=== PATIENT | female | born 1970 | race Caucasian/White ===

== ENCOUNTER → 2018-04-14 12:57 | Outpatient (CLI) | payer OTHER, SELFPAY ==
[2018-04-14 14:39] LABS: Cholesterol 263 mg/dL (200); High Density Lipoprotein 75 mg/dL; Triglycerides 64 mg/dL; Very Low Density Lipoprotein 13 mg/dL (5-40)
== END ==
PROVIDERS: Family Provider Internal Medicine; PCP Internal Medicine; Visit Provider Internal Medicine
DX: Z00.00 Encounter for general adult medical examination without abnormal findings (principal)
CPT/HCPCS: 36415; 80061

== ENCOUNTER → 2019-07-07 16:57 | Outpatient (CLI) | payer OTHER, SELFPAY ==
--- NOTE | 2019-07-07 17:01 | US_ITS ---
STUDY: SOFT TISSUE ULTRASOUND REASON FOR EXAM: Female, 48 years old. Forehead lump TECHNIQUE: Ultrasound evaluation of the soft tissues of the forehead was performed with real-time and static payton-scale imaging. COMPARISON: None. FINDINGS: There is a 1.6 x 1.5 cm heterogeneous hypoechoic lesion in the soft tissues of the forehead which is of uncertain etiology. US/Ext Non Vasc Limited/Soft Tiss IMPRESSION: 1.6 x 1.5 cm heterogeneous hypoechoic lesion in the soft tissues of the forehead which is of uncertain etiology. Consider dermatologic consultation. Electronically Signed: Mitchel Serrano, at 17:06 EDT Tel , Service support ,
== END ==
PROVIDERS: Family Provider Internal Medicine; PCP Internal Medicine; Referring Provider Internal Medicine; Visit Provider Internal Medicine
DX: R22.9 Localized swelling, mass and lump, unspecified (principal)
CPT/HCPCS: 76882

== ENCOUNTER 2021-06-10 13:14 | Observation (INO) | payer OTHER, SELFPAY ==
[2021-06-10] VITALS (11 sets, daily range): BP systolic 107–132; BP diastolic 63–81; PULSE 87–141; RESP 14–28; TEMP 36.4–37; O2SAT 97–100; BMI 25.4
--- NOTE | 2021-06-10 13:25 | EKG12_ITS ---
Test Reason : PALPS Blood Pressure : / mmHG Vent. Rate : 121 BPM Atrial Rate : 100 BPM P-R Int : 140 ms QRS Dur : 082 ms QT Int : 332 ms P-R-T Axes : 039 064 027 degrees QTc Int : 471 ms Sinus rhythm with frequent and consecutive Premature ventricular complexes Abnormal ECG Confirmed by PRATIBHA SMITH, ALEJANDRINA ([id number]), photography editor ELIU YBARRA ([id number]) on 06/13/2021 11:00:35 AM Referred By: SONA Confirmed By:ALEJANDRINA MCKINNON MD
--- NOTE | 2021-06-10 13:47 | EKG12_ITS ---
Test Reason : AM EKG Blood Pressure : / mmHG Vent. Rate : 089 BPM Atrial Rate : 089 BPM P-R Int : 168 ms QRS Dur : 084 ms QT Int : 376 ms P-R-T Axes : 038 065 044 degrees QTc Int : 457 ms Normal sinus rhythm Nonspecific ST abnormality Abnormal ECG Confirmed by PRATIBHA SMITH, ALEJANDRINA ([id number]), map editor ELIU YBARRA ([id number]) on 06/12/2021 10:47:22 AM Referred By: ELOISE Confirmed By:ALEJANDRINA MCKINNON MD
--- NOTE | 2021-06-10 13:47 | RAD_ITS ---
STUDY: X-RAY CHEST REASON FOR EXAM: Female, 50 years old. Dizziness. Arrhythmia. TECHNIQUE: Single AP portable view of the chest. COMPARISON: Comparison is made with prior study dated 10/10/2013. FINDINGS: The lungs are clear and expanded. There is no demonstrated pleural abnormality. Normal size heart. Normal mediastinum and shira. Normal visualized pulmonary arteries. Normal visualized aortic arch and descending thoracic aorta. Normal visualized thoracic spine. Normal visualized ribs, clavicles, and shoulders. There is no demonstrated abnormality of the visualized soft tissue structures of the upper abdomen. RAD/Chest 1 View (Portable) IMPRESSION: Normal x-ray examination of the chest. Electronically Signed: Ravin Piña MD at 14:39 EDT , Service support ,
--- NOTE | 2021-06-10 14:23 | EDS_ITS ---
HPI History of Present Illness Chief Complaint: Palpitations Informant: patient Narrative Narrative: Patient is a 50-year-old female with a past medical history of thyroid cancer status post resection on Synthroid who presents to the emergency department for lightheaded episodes. She states on Thursday she was having very severe episodes where she felt like she was blacking out. This happened many times and lasted for quite a while. These were occurring at random times. She states that it did not matter whether she was exerting herself or just lying down whenever they were happening. Yesterday they were improving but still happening. Today she denies having any symptoms. She went to her PCPs office and they discovered that she was having multiple PVCs and nonsustained run of V. tach. Patient states that she might have felt some palpitations yesterday but otherwise denies having any now. She denies any chest pain or shortness of breath. She denies any recent illness. She has been overall feeling well prior to Thursday. [facility] Medical History (Updated 06/10/21 @ 15:[address] Raymundo Howard DO) Thyroid cancer Home Medications drospirenone-ethinyl estradiol [Vestura (28)] 1 tab PO QHS 06/10/21 [History Last Taken 06/09/21] levothyroxine [Synthroid] 112 mcg PO DAILY 06/10/21 [History Last Taken 06/10/21 ] Allergy/AdvReac Type Severity Reaction Status Date / Time No Known Allergies Allergy Verified 06/10/21 13:16 Social History Smoking Status: Never smoker ROS ROS ED Constitutional Constitutional ED: Denies chills or fever(s) Eyes Eyes: Denies change in vision ENT ENT ED: Denies epistaxis or rhinorrhea Cardiovascular Cardiovascular: Reports palpitations; Denies chest pain Respiratory/Chest Respiratory/Chest: Denies cough, dyspnea or dyspnea on exertion Gastrointestinal Gastrointestinal: Denies abdominal pain, diarrhea, nausea or vomiting Genitourinary Genitourinary ED: Denies dysuria, hematuria or urinary frequency Musculoskeletal Musculoskeletal: Denies back pain or neck pain Integumentary Denies rash Neurologic Neurologic: Denies headache(s) or weakness EXAM Physical Exam Const Vital Signs: 06/10/21 13:16 06/10/21 14:27 06/10/21 15:13 Temperature 97.6 F L Temperature Source Temporal Pulse Rate 104 H 125 H Respiratory Rate 14 28 H Respiratory Effort Normal Non-Labored Respiratory Pattern Normal Blood Pressure 132/79 H 107/81 H Blood Pressure Mean 96 89 Pulse Ox 97 97 Oxygen Delivery Method Room Air Positive well nourished and well developed General Appearance ED: well developed and NAD HEENT Reports normocephalic, head/scalp atraumatic and moist mucous membranes Eyes PERRL and EOMs intact bilaterally Neck supple Chest Wall inspection of chest normal Resp normal respiratory effort and clear to auscultation bilaterally Auscultation: Negative for rales, rhonchi or wheezes Cardio regular rhythm and no murmurs Rate: tachycardic GI normal to inspection, nondistended, normoactive bowel sounds and non-tender Palpation: soft; Negative for guarding or rebound tenderness present Back/Spine no CVA tenderness Extremity normal to inspection General Extremety ED: Negative for edema or tenderness General Extremity: Negative for edema Neuro oriented x3, CN's II-XII intact bilaterally and no sensory deficits noted Sensorium / Orientation: alert Motor Exam: strength 5/5 throughout Psych mental status grossly normal Skin no rashes or lesions noted MDM MDM MDM Narrative Medical decision making narrative: Patient presents the ED from her PCPs office for nonsustained runs of V. tach. On arrival to the ED she had 5 beats of nonsustained V. tach along with frequent PVCs. She is asymptomatic at this time. Blood pressure has been stable. Will check basic lab work, thyroid study and consult cardiology. Patient's lab work did not reveal any significant acute abnormality. She has remained stable throughout ED stay. She had up to an 8 beat episode of nonsustained ventricular tachycardia on the monitor. Her blood pressure has been stable. I did discuss the case with the on-call fire behavior analyst, Dr. Alexis gallego. Not recommend starting any medications at this time. I did discuss everything with the patient and we decided on hospitalization for an observation visit. She will likely need echocardiogram and potential stress test. Patient understands and is agreeable with this plan. She otherwise has remained stable throughout ED stay. Lab Data Labs: Laboratory Results - last 24 hr 06/10/21 06/10/21 14:20 14:20 WBC 10.5 RBC 4.42 Hgb 13.3 Hct 39.4 MCV 89.1 MCH 30.1 MCHC 33.8 RDW Std Deviation 39.7 RDW Coeff of [place] 12.0 Plt Count 291 MPV 9.7 Immature Gran % (Auto) 0.400 Neut % (Auto) 64.0 Lymph % (Auto) 27.1 [place] % (Auto) 6.1 Eos % (Auto) 1.6 Baso % (Auto) 0.8 Absolute Neuts (auto) 6.8 Absolute Lymphs (auto) 2.85 Nucleated RBC % 0 Sodium 138 Potassium 3.6 Chloride 105 Carbon Dioxide 26.0 Anion Gap 7 BUN 9 Creatinine 0.86 Estim Creat Clear Calc 66.08 Est GFR (MDRD) Af Amer 89 Est GFR (MDRD) Non-Af 73 BUN/Creatinine Ratio 10.4 Glucose 111 H Calcium 9.2 Phosphorus 2.9 Magnesium 2.1 Troponin I High Sens 3.9 TSH 1.27 Radiography Diagnostic Testing: Radiology Impression Chest X-Ray 06/10/21 13:47 IMPRESSION: Normal x-ray examination of the chest. Electronically Signed: Ravin Piña MD at 14:39 EDT , Service support , EKG Initial EKG: Attestation: I personally reviewed and interpreted this EKG as follows: (Rate of 121 bpm. There are 3 separate episodes of PVCs. There is a 2 beat episode, a 5 beat episode of 3 beat episode. Otherwise she has normal intervals with a normal axis. No significant ST elevations or depressions.) Discharge Plan Dx/Rx/DC Orders Clinical Impression: Non-sustained ventricular tachycardia, Near syncope Disposition Disposition: Acute Care [facility]
[2021-06-10 14:28] LABS: Absolute Lymphocyte Count 2.85 X10^3/uL (0.83-4.51); Absolute Neutrophil Count 6.8 X10^3/uL (2.0-7.7); Basophil# 0.08 X10^3/uL; Basophil% 0.8 % (0-1); Eosinophil# 0.17 X10^3/uL; Eosinophils% 1.6 % (0-5); Hematocrit 39.4 % (37-47); Hemoglobin 13.3 g/dL (12.0-15.0); Lymphocyte # 2.85 X10^3/ul (0.83-4.51); Lymphocyte % 27.1 % (19-41); Mean Corp Hgb Conc 33.8 g/dL (32-36); Mean Corpuscular Hgb 30.1 pg (27.0-32.0); Mean Corpuscular Volume 89.1 fL (81-99); Mean Platelet Vol. 9.7 fl (6.2-12.0); Monocyte# 0.64 X10^3/uL; Monocyte% 6.1 % (0-10); NRBC Flagged by Analyzer 0 % (0-5); Neutrophil # 6.75 X10^3/uL (2.7-7.7); Platelet Count 291 K/mm3 (150-450); RBC Distribution Width SD 39.7 fl (35.1-43.9); Red Blood Count 4.42 M/mm3 (4.2-5.4); White Blood Count 10.5 K/mm3 (4.4-11.0)
[2021-06-10 14:55] LABS: Anion Gap 7 (5-15); BUN 9 mg/dL (7-18); BUN/Creat Ratio 10.4 RATIO (10-20); Calcium,Total 9.2 mg/dL (8.5-10.1); Chloride 105 mmol/L (98-107); Creatinine, Serum 0.86 mg/dL (0.55-1.02); EST Glomerular Filtration Rate 73 mL/min (>60); Est Glom Filt Rate - Afr Amer 89 mL/min (>60); Estimated Creatinine Clearance 66.08 ml/min; Glucose 111 mg/dL (74-106); Magnesium 2.1 mg/dL (1.6-2.6); Phosphorus 2.9 mg/dL (2.5-4.9); Potassium 3.6 mmol/L (3.5-5.1); Sodium Level 138 mmol/L (136-145); Thyroid Stim Hormone (TSH) 1.27 uIU/mL (0.358-3.74); Troponin-I HS 3.9 pg/mL (3.0-53.7)
--- NOTE | 2021-06-10 15:31 | HP.PCM.HOS_ITS ---
HPI - General General Date of Admission: 06/10/21 Date of Service: 06/10/21 Chief Complaint: Palpitations, near syncope HPI Narrative The patient is a 50 y/o F w/ PMHx: Thyroid CA s/p resection otherwise healthy who presents to the [facility] ED on 06/10/21 per PCP recommendation with history of onset Thursday, several episodes of episodes of lightheadedness, blurred dark transition vision changes with mild palpitations noted following resolution but no formal syncope lasting seconds to a couple minutes each time with then only 2 episodes on Thursday and noted more episodes following of elevated HR without chest pain or dyspnea complaints with PCP evaluation on day of presentation with noted episodes of NSVT prompting ED referral. She denies any episodes of near syncope upon day of ED presentation. Patient notes drinking only 1 cup of co ffee daily and an occasional Coke or soda pop every 2 weeks potentially. Work- up in the ED included T 97.6, heart rate initially 104 however increased to 125, BP 107 RV 81, respiratory rate initially 14 however increased to 28, 97% on room air, CBC with WC 10.5, hemoglobin 13.3, platelet 291 without marked shift, BMP unremarkable aside glucose 111, magnesium 2.1, phosphorus 2.9, TSH 1.27, high-se nsitivity troponin 3.9, chest x-ray with no acute cardiopulmonary findings, initial ED presentation with 5 beats of nonsustained V. tach as well as frequent PVCs although patient asymptomatic at that time, EKG with tachycardia with 3 separate episodes of PVCs with noted to be an episode and then a 5 beat episode as well as a 3 beat episode otherwise unremarkable with no ST elevations or depressions. [facility] Medical History (Updated 06/10/21 @ 16:[address] Naima Gonzáles MD) Hypothyroidism Thyroid cancer Home Medications drospirenone-ethinyl estradiol [Vestura (28)] 1 tab PO QHS 06/10/21 [History Last Taken 06/09/21] levothyroxine [Synthroid] 112 mcg PO DAILY 06/10/21 [History Last Taken 06/10/21] Allergy/AdvReac Type Severity Reaction Status Date / Time No Known Allergies Allergy Verified 06/10/21 13:16 Family History (Updated 06/10/21 @ 16:[address] Naima Gonzáles MD) Mother Cancer Mother with melanoma HLD (hyperlipidemia) Father Cancer Unclear type of sinus cancer with metastatic spread Surgical History (Updated 06/10/21 @ 16:[address] Naima Gonzáles MD) S/P thyroid surgery Social History (Updated 06/10/21 @ 16:[address] Naima Gonzáles MD) household members: none Smoking Status: Never smoker alcohol intake: never substance use type: does not use ROS ROS Narrative Admission Review of Systems: CONSTITUTIONAL: No weight loss, fever, chills, + weakness or fatigue. HEENT: Eyes: + Vision changes w/ near syncope. No double vision or yellow sclerae. Ears, Nose, Throat: No hearing loss, sneezing, congestion, runny nose or sore throat. SKIN: No rash or itching, lesions, wounds. CARDIOVASCULAR: + Near syncope, LH, palpitations. No chest pain, chest pressure or chest discomfort, edema, orthopnea. RESPIRATORY: No shortness of breath, cough or sputum, wheezing, hemoptysis. GASTROINTESTINAL: No anorexia, nausea, vomiting or diarrhea, abdominal pain, melena, BRBPR. GENITOURINARY: No dysuria, frequency, urgency or retention. NEUROLOGICAL: + LH, near syncope. No headache, paralysis, ataxia, numbness or tingling in the extremities, focal weakness, change in bowel or bladder control, seizure. MUSCULOSKELETAL: No muscle, back pain, joint pain or stiffness. HEMATOLOGIC: No anemia, bleeding or bruising. LYMPHATICS: No enlarged nodes. No history of splenectomy. PSYCHIATRIC: No history of depression or anxiety. ENDOCRINOLOGIC: No reports of sweating, cold or heat intolerance. No polyuria or polydipsia. ALLERGIES: No history of asthma, hives, eczema or rhinitis. Vital Signs Vital Signs Vital Signs: 06/10/21 13:16 06/10/21 14:27 06/10/21 15:13 Temperature 97.6 F L Temperature Source Temporal Pulse Rate 104 H 125 H Respiratory Rate 14 28 H Respiratory Effort Normal Non-Labored Respiratory Pattern Normal Blood Pressure 132/79 H 107/81 H Blood Pressure Mean 96 89 Pulse Ox 97 97 Oxygen Delivery Method Room Air Weight Weight: 148 lb 9.465 oz Body Mass Index (BMI) 25.4 Physical Exam Narrative Physical Examination: General: Awake, alert, oriented x 3 and cooperative, seated upright in the ED bed in no apparent distress. Skin: Normal color, normal turgor, no icterus, no cyanosis. HEENT: AT/NC, EOMI, PERRLA, MMM, no carotid bruits or JVD noted. Lungs: CTA bilaterally, moderate effort, mild decrease BL bases, no rales, ronchi or wheezing. Heart: Improved, currently mildly tachycardic with regular rhythm; no gallop, ru b audible. Abdomen: Soft, NTTP, ND, normal BS, no HSM. Extremities: No cyanosis, clubbing, or edema. Neurological: Patient awake, alert, oriented x 3, cognitive function intact; pupils equally reactive to light and accommodation, cranial nerves II-XII grossly normal, moving all 4 extremities, no focal deficits, strength preserved. Psychiatric: Affect appears normal, no acute evidence of depressive or anxiety feelings. Results Lab / Micro Data Result Diagrams: 06/10/21 14:20 06/10/21 14:20 Labs: Laboratory Results - last 24 hr 06/10/21 14:20: WBC 10.5, RBC 4.42, Hgb 13.3, Hct 39.4, MCV 89.1, MCH 30.1, MCHC 33.8, RDW Std Deviation 39.7, RDW Coeff of [place] 12.0, Plt Count 291, MPV 9.7, Immature Gran % (Auto) 0.400, Neut % (Auto) 64.0, Lymph % (Auto) 27.1, [place] % (Auto) 6.1, Eos % (Auto) 1.6, Baso % (Auto) 0.8, Absolute Neuts (auto) 6.8, Absolute Lymphs (auto) 2.85, Nucleated RBC % 0 06/10/21 14:20: Sodium 138, Potassium 3.6, Chloride 105, Carbon Dioxide 26.0, Anion Gap 7, BUN 9, Creatinine 0.86, Estim Creat Clear Calc 66.08, Est GFR (MDRD) Af Amer 89, Est GFR (MDRD) Non-Af 73, BUN/Creatinine Ratio 10.4, Glucose 111 H, Calcium 9.2, Phosphorus 2.9, Magnesium 2.1, Troponin I High Sens 3.9, TSH 1.27 Radiology Impression Chest X-Ray 06/10/21 13:47 IMPRESSION: Normal x-ray examination of the chest. Electronically Signed: Ravin Piña MD at 14:39 EDT , Service support , Assessment & Plan Assessment/Plan (1) Near syncope: (2) Non-sustained ventricular tachycardia: PLAN: The patient is a 50 y/o F w/ PMHx: Thyroid CA s/p resection otherwise healthy who presents to the [facility] ED on 06/10/21 per PCP recommendation with history of onset Thursday of several episodes of episodes of lightheadedness, blurred dark transition vision changes with mild palpitations with PCP evaluation on day of presentation with noted episodes of NSVT prompting ED referral. 1. Cardiac arrhythmia with symptomatic NSVT, near syncopal events: We will a dmit to PCU, maintain on telemetry monitoring, request ECHO, request Cardiology continued evaluation, will initiate metoprolol low dose 25 mg BID however will defer to Cardiology if preference to hold on start, maintain on a monitored bed to assure no acute myocardial infarction with serial cardiac enzymes and EKGs. TSH normal, Mag normal, Phos normal. Will maintain on continuous pulse oximeter overnight to assure no evidence of sleep apnea as could contribute. Will request Cardiology continued evaluation and per their request will plan AM stress testing in addition to the ECHO as noted. ASA, NG, morphine. 2. History of Thyroid CA s/p resection with Hypothyroidism: TSH normal, continue synthroid regimen. 3. DVT Prophylaxis: SCDs, lovenox given #1 as noted. Charges/Coding Visit Charges OBSV E&M: 89982 Initial observation care L3
--- NOTE | 2021-06-10 17:24 | ECHOD_ITS ---
Reason For Study: NSVT Procedure This was a 2D Doppler, Color Flow transthoracic echocardiogram. Exam performed in department. Left Ventricle Normal LV size. The estimated ejection fraction is 60 %. Normal diastology for age. No regional wall motion abnormalities noted. Right Ventricle Normal RV size. Normal systolic function. Atria Normal left atrium. Normal right atrium. Patent foramen ovale. Mitral Valve There is no mitral valve stenosis. No mitral valve insufficiency. Tricuspid Valve There is no tricuspid stenosis. Mild tricuspid valve insufficiency. Pulmonary artery systolic pressure is 25-30 mmHg. Aortic Valve Trisinus/trileaflet aortic valve. There is no aortic stenosis. No aortic valve insufficiency. Pulmonic Valve There is no pulmonic valvular stenosis. No pulmonic valve insufficiency. Great Vessels Normal aortic root. Pericardium/Pleural No pericardial effusion. MMode/2D Measurements & Calculations LVIDd: 4.8 cm IVSd: 0.71 cm Ao root diam: 3.1 cm LVIDs: 3.6 cm LVPWd: 0.57 cm RVDd: 3.1 cm FS: 25.6 % LAV(MOD-bp): 45.6 ml LA A4 area: 15.3 cm2 LA dimension(2D): 2.7 cm LAV(MOD-bp) Indexed: 26.5 ml/m2 LAV(MOD-sp2): 44.9 ml LAV(MOD-sp4): 41.5 ml RA A4 area: 9.3 cm2 Time Measurements MV dec time: 0.21 sec Doppler Measurements & Calculations MV A max mike: 53.4 cm/sec Lat Peak E' Mike: 10.9 cm/sec Med Peak E' Imke: 9.5 cm/sec Ao V2 max: 131.6 cm/sec LV V1 max: 100.9 cm/sec PA V2 max: 93.1 cm/sec Ao max P.9 mmHg LV V1 max P.1 mmHg TR max mike: 244.8 cm/sec TR max P.0 mmHg ECHO/Echo Complete Interpretation Summary The estimated ejection fraction is 60 %. Normal diastology for age. Mild tricuspid valve insufficiency. Ordering Physician: Naima Gonzáles Referring Physician: Milvia Jimenez Performed By: Alicja Farley, JANETT, RVT
--- NOTE | 2021-06-10 17:24 | EKG12_ITS ---
Test Reason : DYSRHYTHMIA Blood Pressure : / mmHG Vent. Rate : 084 BPM Atrial Rate : 084 BPM P-R Int : 176 ms QRS Dur : 084 ms QT Int : 372 ms P-R-T Axes : 030 058 034 degrees QTc Int : 439 ms Normal sinus rhythm Normal ECG Confirmed by PRATIBHA SMITH, ALEJANDRINA ([id number]), editor managing director ELIU YBARRA ([id number]) on 06/12/2021 10:48:00 AM Referred By: ELOISE Confirmed By:ALEJANDRINA MCKINNON MD
[2021-06-10] MEDS: Metoprolol Tartrate 25 MG Tablet PO ×2 (18:33→23:00)
[2021-06-10 19:59] LABS: Troponin-I HS 4.1 pg/mL (3.0-53.7)
[2021-06-10] MEDS: 0.9% Normal Saline 1,000 ML 100 ML IV (20:32)
[2021-06-10 21:23] LABS: Troponin-I HS 4.8 pg/mL (3.0-53.7)
[2021-06-11] VITALS (20 sets, daily range): BP systolic 84–126; BP diastolic 49–88; PULSE 68–134; RESP 16–18; TEMP 36.7–36.9; O2SAT 96–100
--- NOTE | 2021-06-11 05:55 | EKG12_ITS ---
Test Reason : PALPS Blood Pressure : / mmHG Vent. Rate : 096 BPM Atrial Rate : 096 BPM P-R Int : 160 ms QRS Dur : 088 ms QT Int : 336 ms P-R-T Axes : 043 064 050 degrees QTc Int : 424 ms Normal sinus rhythm Nonspecific ST abnormality Abnormal ECG Confirmed by PRATIBHA SMITH, ALEJANDRINA ([id number]), purchasing expeditor ELIU YBARRA ([id number]) on 06/13/2021 10:58:30 AM Referred By: SONA Confirmed By:ALEJANDRINA MCKINNON MD
[2021-06-11] MEDS: Aspirin E.C. 81 MG Tablet PO (06:12)
[2021-06-11] MEDS: Levothyroxine 112 MCG Tablet PO (06:12)
[2021-06-11] MEDS: 0.9% Normal Saline 1,000 ML 100 ML IV (06:13)
[2021-06-11 07:12] LABS: Absolute Lymphocyte Count 3.12 X10^3/uL (0.83-4.51); Absolute Neutrophil Count 6.2 X10^3/uL (2.0-7.7); Basophil# 0.07 X10^3/uL; Basophil% 0.7 % (0-1); Eosinophil# 0.21 X10^3/uL; Hematocrit 37.1 % (37-47); Hemoglobin 12.5 g/dL (12.0-15.0); Lymphocyte # 3.12 X10^3/ul (0.83-4.51); Lymphocyte % 30.4 % (19-41); Mean Corp Hgb Conc 33.7 g/dL (32-36); Mean Corpuscular Hgb 29.8 pg (27.0-32.0); Mean Corpuscular Volume 88.3 fL (81-99); Mean Platelet Vol. 9.8 fl (6.2-12.0); Monocyte% 6.8 % (0-10); NRBC Flagged by Analyzer 0 % (0-5); Neutrophil # 6.15 X10^3/uL (2.7-7.7); Neutrophil % 59.8 % (47-70); Platelet Count 235 K/mm3 (150-450); RBC Distribution Width CV 12.1 % (11.6-14.6); RBC Distribution Width SD 39.1 fl (35.1-43.9); White Blood Count 10.3 K/mm3 (4.4-11.0)
[2021-06-11 07:50] LABS: ALB/GLOB Ratio 0.9 RATIO (0.9-2.4); AST(SGOT) 12 U/L (15-37); Alanine Aminotransfer ALT/SGPT 16 U/L (13-56); Albumin, Serum 3.1 g/dL (3.2-5.0); Alkaline Phosphatase 46 U/L (45-117); Anion Gap 5 (5-15); BUN 8 mg/dL (7-18); BUN/Creat Ratio 10.1 RATIO (10-20); Calcium,Total 8.4 mg/dL (8.5-10.1); Chloride 107 mmol/L (98-107); Cholesterol 255 mg/dL (200); Creatinine, Serum 0.79 mg/dL (0.55-1.02); EST Glomerular Filtration Rate 81 mL/min (>60); Est Glom Filt Rate - Afr Amer 98 mL/min (>60); Estimated Creatinine Clearance 71.93 ml/min; Globulin 3.6 g/dL (2.2-4.2); Glucose 95 mg/dL (74-106); High Density Lipoprotein 77 mg/dL; Potassium 4.3 mmol/L (3.5-5.1); Protein, Total 6.7 g/dL (6.4-8.2); Sodium Level 139 mmol/L (136-145); Triglycerides 116 mg/dL; Very Low Density Lipoprotein 23 mg/dL (5-40)
[2021-06-11] MEDS: Metoprolol Tartrate 25 MG Tablet PO ×2 (10:18→21:38)
--- NOTE | 2021-06-11 12:06 | PN.HOSP_ITS ---
Subjective Subjective Patient seen and examined. SHe was admitted with a complaint of palpitations and dizziness as well as near syncope. She was found to have nonsustained ventricular tachyardia on admission. She has no complaints this morning. She had an uneventful night, and tachycardia didnt recur. Review of systems is otherwise negative. She is due for 2D echo and stress test today. Objective Data Objective Data Vital Signs: Vital Signs Temp Pulse Resp BP Pulse Ox 98.3 F 75 18 123/76 H 99 06/11/21 10:15 06/11/21 11:00 06/11/21 10:15 06/11/21 10:18 06/11/21 10:15 Oxygen Delivery Method Room Air Weight: 149 lb 7.574 oz Body Mass Index (BMI) 25.4 Intake & Output: Intake and Output for Last 24 Hours 06/09/21 06/10/21 06/11/21 23:59 23:59 23:59 Intake Total 845 / 845 623.33 / 623.33 Balance 845 / 845 623.33 / 623.33 Lab / Micro Data Result Diagrams: 06/11/21 07:05 06/11/21 07:05 Labs: Laboratory Results - last 24 hr 06/10/21 14:20: WBC 10.5, RBC 4.42, Hgb 13.3, Hct 39.4, MCV 89.1, MCH 30.1, MCHC 33.8, RDW Std Deviation 39.7, RDW Coeff of [place] 12.0, Plt Count 291, MPV 9.7, Immature Gran % (Auto) 0.400, Neut % (Auto) 64.0, Lymph % (Auto) 27.1, [place] % (Auto) 6.1, Eos % (Auto) 1.6, Baso % (Auto) 0.8, Absolute Neuts (auto) 6.8, Abs olute Lymphs (auto) 2.85, Nucleated RBC % 0 06/10/21 14:20: Sodium 138, Potassium 3.6, Chloride 105, Carbon Dioxide 26.0, Anion Gap 7, BUN 9, Creatinine 0.86, Estim Creat Clear Calc 66.08, Est GFR (MDRD) Af Amer 89, Est GFR (MDRD) Non-Af 73, BUN/Creatinine Ratio 10.4, Glucose 111 H, Calcium 9.2, Phosphorus 2.9, Magnesium 2.1, Troponin I High Sens 3.9, TSH 1.27 06/10/21 18:48: Troponin I High Sens 4.1 06/10/21 20:50: Troponin I High Sens 4.8 06/11/21 07:05: WBC 10.3, RBC 4.20, Hgb 12.5, Hct 37.1, MCV 88.3, MCH 29.8, MCHC 33.7, RDW Std Deviation 39.1, RDW Coeff of [place] 12.1, Plt Count 235, MPV 9.8, Immature Gran % (Auto) 0.300, Neut % (Auto) 59.8, Lymph % (Auto) 30.4, [place] % (Auto) 6.8, Eos % (Auto) 2.0, Baso % (Auto) 0.7, Absolute Neuts (auto) 6.2, Absolute Lymphs (auto) 3.12, Nucleated RBC % 0 06/11/21 07:05: Sodium 139, Potassium 4.3, Chloride 107, Carbon Dioxide 27.0, Anion Gap 5, BUN 8, Creatinine 0.79, Estim Creat Clear Calc 71.93, Est GFR (MDRD ) Af Amer 98, Est GFR (MDRD) Non-Af 81, BUN/Creatinine Ratio 10.1, Glucose 95, Calcium 8.4 L, Total Bilirubin 0.60, AST 12 L, ALT 16, Alkaline Phosphatase 46, Total Protein 6.7, Albumin 3.1 L, Globulin 3.6, Albumin/Globulin Ratio 0.9, Triglycerides 116, Cholesterol 255 H, LDL Cholesterol 155 H, VLDL Cholesterol 23, HDL Cholesterol 77 Radiography Diagnostic Testing: Radiology Impression Chest X-Ray 06/10/21 13:47 IMPRESSION: Normal x-ray examination of the chest. Electronically Signed: Ravin Piña MD at 14:39 EDT , Service support , Physical Exam Const alert, oriented x3 and no apparent distress Exam Limitations: no limitations and altered mental status HEENT moist oral mucous membranes Head and Scalp: normocephalic Eyes PERRL, EOMs intact bilaterally and conjunctivae normal Neck no lymphadenopathy Resp normal respiratory effort, no retractions and clear to auscultation bilaterally Cardio regular rate, regular rhythm, S1 normal heart sound, S2 normal heart sound and no murmurs GI normal to inspection, nondistended, normoactive bowel sounds, soft to palpation, non-tender and non-distended Extremity normal to inspection, full ROM and no clubbing, cyanosis or edema Peripheral Pulses: Yes pulses 2+ throughout Skin no rashes or lesions noted Neuro oriented x3, CN's II-XII intact bilaterally and moves all extremities Sensorium / Orientation: awake and alert Psych affect normal Assessment & Plan Assessment/Plan (1) Non-sustained ventricular tachycardia: PLAN: #Nonsustained ventricular tachycardia with near syncope * currently has no complaints * was started on metoprolol 25mg bid on admission * for stress test and 2D echo today * cardiology consulted; await rec's. * fall precautions * #History of thyroid cancer * s/p resection with resultant hypothyroidism * on synthroid * #Hypercholestrolemia * total cholesterol is 255, with LDL of 155. * will start on atorvastatin. DVT prophylaxis; lovenox Charges/Coding Visit Charges Inpatient E&M: 54887 Subs Hosp L3
[2021-06-11 12:33] LABS: Internal QC Validated? YES +Cl - CLEAR BKGD
[2021-06-11 12:37] LABS: Pregnancy, Urine Negative Negative
--- NOTE | 2021-06-11 13:42 | CASEMGMT ---
According to the MMO website, the following are in-network tertiary facilities: [facility], [facility], [facility], [facility], [facility], [facility], [facility], and . [facility] JACKSON CM
[2021-06-11] MEDS: 0.9% Normal Saline 1,000 ML 80 ML IV (14:00)
--- NOTE | 2021-06-11 15:01 | CON.PCM.CA_ITS ---
Assessment & Plan Assessment/Plan (1) Non-sustained ventricular tachycardia: PLAN: Patient's potassium, magnesium, TSH were within normal limits. 2D echo was unremarkable. Coronary angiography did not reveal any significant CAD. Patient was initially started on a beta-endy but she did not receive it this morning as a stress test was originally ordered. Patient has not had any further near syncopal episodes since Thursday. I think it will be reasonable to discharge patient home on metoprolol 25 mg p.o. twice daily. It will be reasonable to get a 30-day event monitor at discharge if possible. She would b enefit from referral to EP service. She prefers to go to the [facility] and could be referred to Dr. Whitaker at [facility]. (2) Near syncope: PLAN: Patient could have had more prolonged runs of nonsustained V. tach at home. She has not had these episodes since Thursday. As mentioned above we are starting her on a beta-endy and it would be reasonable to get a 30-day event monitor and follow-up with EP. HPI Consult Data Date of Consult: 06/11/21 HPI Narrative HPI Narrative: JV RED, is a 50 F who presents with near syncopal episodes that happened last Thursday. On Thursday and yesterday she felt better but she went to see her primary care physician. She was found to have runs of nonsustained V. tach and PVCs and was sent to the emergency room. The emergency room she continued to have runs of nonsustained V. tach and she was admitted for monitoring. Overnight she has had multiple PVCs and up to 5 beat runs of nonsustained V. tach. 2D echo was done which was unremarkable. She was evaluated and after discussing the risks and benefits she underwent coronary angiography which revealed no significant coronary artery disease. Review of systems: All systems reviewed. All else is negative except that in the HPI. [facility] Medical History (Updated 06/10/21 @ 16:[address] Naima Gonzáles MD) Hypothyroidism Thyroid cancer Home Medications drospirenone-ethinyl estradiol [Vestura (28)] 1 tab PO QHS 06/10/21 [History Last Taken 06/09/21] levothyroxine [Synthroid] 112 mcg PO DAILY 06/10/21 [History Last Taken 06/10/21] Allergy/AdvReac Type Severity Reaction Status Date / Time No Known Allergies Allergy Verified 06/10/21 13:16 Family History (Updated 06/10/21 @ 16:[address] Naima Gonzáles MD) Mother Cancer Mother with melanoma HLD (hyperlipidemia) Father Cancer Unclear type of sinus cancer with metastatic spread Surgical History (Updated 06/10/21 @ 16:[address] Naima Gonzáles MD) S/P thyroid surgery Social History (Updated 06/10/21 @ 16:[address] Naima Gonzáles MD) household members: none Smoking Status: Never smoker alcohol intake: never substance use type: does not use Physical Exam Const alert and oriented x3 Orientation / Consciousness: awake HEENT normocephalic Eyes no scleral icterus Neck supple Resp normal respiratory effort Cardio regular rate Extremity no pedal edema Skin no rashes or lesions noted Neuro oriented x3 Psych mental status grossly normal Charges/Coding Visit Charges Inpatient E&M: 67656 Init Hosp L3 Objective Data Vital Signs: Vital Signs Temp Pulse Resp BP Pulse Ox 98.3 F 70 18 84/64 L 98 06/11/21 10:15 06/11/21 14:30 06/11/21 14:30 06/11/21 14:30 06/11/21 14:30 Oxygen Delivery Method Room Air Weight: 149 lb 7.574 oz Body Mass Index (BMI) 25.4 Intake & Output: Intake and Output for Last 24 Hours 06/09/21 06/10/21 06/11/21 23:59 23:59 23:59 Intake Total 845 / 845 1321.66 / 1321.66 Balance 845 / 845 1321.66 / 1321.66 Lab / Micro Data Result Diagrams: 06/11/21 07:05 06/11/21 07:05 Labs: Laboratory Results - last 24 hr 06/10/21 18:48: Troponin I High Sens 4.1 06/10/21 20:50: Troponin I High Sens 4.8 06/11/21 07:05: WBC 10.3, RBC 4.20, Hgb 12.5, Hct 37.1, MCV 88.3, MCH 29.8, MCHC 33.7, RDW Std Deviation 39.1, RDW Coeff of [place] 12.1, Plt Count 235, MPV 9.8, Immature Gran % (Auto) 0.300, Neut % (Auto) 59.8, Lymph % (Auto) 30.4, [place] % (Auto) 6.8, Eos % (Auto) 2.0, Baso % (Auto) 0.7, Absolute Neuts (auto) 6.2, Absolute Lymphs (auto) 3.12, Nucleated RBC % 0 06/11/21 07:05: Sodium 139, Potassium 4.3, Chloride 107, Carbon Dioxide 27.0, Anion Gap 5, BUN 8, Creatinine 0.79, Estim Creat Clear Calc 71.93, Est GFR (MDRD) Af Amer 98, Est GFR (MDRD) Non-Af 81, BUN/Creatinine Ratio 10.1, Glucose 95, Calcium 8.4 L, Total Bilirubin 0.60, AST 12 L, ALT 16, Alkaline Phosphatase 46, Total Protein 6.7, Albumin 3.1 L, Globulin 3.6, Albumin/Globulin Ratio 0.9, Triglycerides 116, Cholesterol 255 H, LDL Cholesterol 155 H, VLDL Cholesterol 23, HDL Cholesterol 77 06/11/21 12:25: Urine Test Negative Cardiology Labs/Tests 06/11/21 07:05: WBC 10.3, RBC 4.20, Hgb 12.5, Hct 37.1, MCV 88.3, MCH 29.8, MCHC 33.7, Plt Count 235, MPV 9.8, Immature Gran % (Auto) 0.300, Neut % (Auto) 59.8, Lymph % (Auto) 30.4, [place] % (Auto) 6.8, Eos % (Auto) 2.0, Baso % (Auto) 0.7, Absolute Neuts (auto) 6.2, Nucleated RBC % 0 06/11/21 07:05: Sodium 139, Potassium 4.3, Chloride 107, Carbon Dioxide 27.0, Anion Gap 5, BUN 8, Creatinine 0.79, Est GFR (MDRD) Af Amer 98, Est GFR (MDRD) Non-Af 81, BUN/Creatinine Ratio 10.1, Glucose 95, Calcium 8.4 L, Total Bilirubin 0.60, Triglycerides 116, Cholesterol 255 H, LDL Cholesterol 155 H, VLDL Cholesterol 23, HDL Cholesterol 77 Rhythm: EKG: ECHO: Stress Test: Cardiac Cath: PCI: CT Surgery: Holter monitor: EPS: PPM: CXR: Chest CT Scan: Radiography Diagnostic Testing: Radiology Impression Echocardiogram 06/10/21 17:24 Interpretation Summary The estimated ejection fraction is 60 %. Normal diastology for age. Mild tricuspid valve insufficiency. Ordering Physician: Naima Gonzáles Referring Physician: Milvia Jimenez Performed By: Alicja Farley, JANETT, RVT
[2021-06-12] VITALS (8 sets, daily range): BP systolic 93–127; BP diastolic 63–81; PULSE 61–89; RESP 16–18; TEMP 36.4–36.5; O2SAT 97–99
[2021-06-12] MEDS: Levothyroxine 112 MCG Tablet PO (06:44)
[2021-06-12] MEDS: Metoprolol Tartrate 25 MG Tablet PO (10:41)
[2021-06-12] MEDS: Aspirin E.C. 81 MG Tablet PO (10:41)
--- NOTE | 2021-06-12 10:52 | PCM.DC.SUM ---
Providers Date of Admission: 06/10/21 Primary Care Physician: Dr. Milvia Jimenez, Consultations 06/10/21 17:24 Consult: Cardiology Routine Consulting Provider: Cindi Barbosa Reason for Consult: NSVT EMERGENT Consult: No MD Notified: Yes Date Notified: 06/10/21 Time Notified: 15:46 Method of Notification: called per ED Reason For Visit: NEAR SYNCOPE NSVT Diagnosis Discharge Diagnosis (1) Non-sustained ventricular tachycardia: Status: Acute Code(s): I47.2 - Ventricular tachycardia (2) Near syncope: Status: Acute Code(s): R55 - Syncope and collapse Medications at Discharge Home Medications drospirenone-ethinyl estradiol [Vestura (28)] 1 tab PO QHS 06/10/21 levothyroxine [Synthroid] 112 mcg PO DAILY 06/10/21 aspirin 81 mg PO DAILY@0800 #30 tab 06/12/21 atorvastatin 40 mg PO QHS #30 tab 06/12/21 metoprolol tartrate 25 mg PO BID #60 tab 06/12/21 Hospital Course Operations None Procedures 2-D Echocardiogram and Cardiac catheterization Summary of Care Provided Minutes Spent on Discharge: 50 Hospital Course: Patient is a 50-year-old female with a past medical history significant for thyroid cancer s/p resection with resultant hypothyroidism. She was admitted through the ED on 06/10/2021 with a complaint of several episodes of lightheadedness, blurred vision and palpitations which have started a few days prior to admission. Symptoms lasted a few seconds to a couple of minutes and then would resolve. Symptoms however recurred and she also noted that she was having palpitations but she did not have any chest pain or shortness of breath. Patient informed her PCP who recommended that patient comes into the ED. Patient admitted to drinking a cup of coffee daily and occasional Coke all soda pop. On admission, heart rate was initially 104 but went up to 125 and labs were essentially unremarkable. Magnesium was 2.1 and potassium was within normal limits. High-sensitivity troponin was not elevated and chest x-ray showed no acute cardiopulmonary findings. TSH was 127. In the ED, EKG showed tachycardia with 3 separate episodes of PVCs and she was also noted to have a 5 beat run of nonsustained ventricular tachycardia. She was therefore admitted to be managed for near syncope likely due to nonsustained ventricular tachycardia. Cardiology was consulted. Patient was due to have a stress test but this was aborted on account of episodes of ventricular tachycardia so she had a cardiac cath which per cardiology was unremarkable with patent vessels. 2D echo done showed EF of 60% with normal diastolic for age and no regional wall motion abnormalities noted with pulmonary artery systolic pressure of 25 to 30mmHg and no evidence of aortic stenosis. Patient remained stable and on cardiology recommendations, she was discharged on 06/12/2021 on p.o. metoprolol 25 mg twice daily. Patient expressed concerns about her blood pressure and said her blood pressure usually runs low. Per review of chart, her blood pressure usually runs in the 110s and 120s systolic but had dipped into the 90s and 80s systolic episodically. I did discuss this with Dr. Dr. Barbosa the firer marine who recommended that if patient was asymptomatic at those times, then in light of her nonsustained ventricular tachycardia, it was a good idea to discharge patient home on 25 mg twice daily of metoprolol. Patient was counseled that she will need to monitor her blood pressure twice a day and if her systolic dropped to below 80 mmHg and or she felt symptomatic with lightheadedness, dizziness and palpitations, she was to call her PCP or going to the emergency room emergently. Patient was also referred to electrophysiology. Patient stated that she would prefer the [facility] system and so cardiology recommended that she be referred to Dr. Whitaker at [facility]. She is to follow-up with her PCP and firer marine within 1 to 2 weeks. Patient was also ordered a 30-day event monitor and sent this will be mailed to her at home, she was discharged with a 48-hour Holter monitor in the interim and results are to be sent to Dr. Barbosa for interpretation. Of note, patient's lipid panel also showed elevated cholesterol of 255 with LDL cholesterol of 155 which was started on p.o. atorvastatin 40 mg nightly. Patient was seen and examined prior to discharge. Patient had a lot of questions and sought a lot of clarity with regards to her care and all her questions were answered and patient was reassured. Review of symptoms otherwise negative. Labs and vitals reviewed. Home medication reviewed and reconciled. Physical Exam Const alert, oriented x3 and no apparent distress General Appearance: cooperative Orientation / Consciousness: awake Exam Limitations: no limitations and altered mental status HEENT normocephalic, head/scalp atraumatic, hearing grossly normal bilaterally and moist oral mucous membranes Eyes PERRL, EOMs intact bilaterally and conjunctivae normal Neck no lymphadenopathy Resp normal respiratory effort, no retractions, no use of accessory muscles and clear to auscultation bilaterally Cardio regular rate, regular rhythm, S1 normal heart sound, S2 normal heart sound and no murmurs GI normal to inspection, nondistended, normoactive bowel sounds, soft to palpation, non-tender and non-distended Extremity normal to inspection, full ROM and no clubbing, cyanosis or edema Skin no rashes or lesions noted Neuro oriented x3, CN's II-XII intact bilaterally and moves all extremities Sensorium / Orientation: awake and alert Psych Mood & Affect: anxious Weight / BMI Weight Weight: 147 lb 11.355 oz Body Mass Index (BMI) 25.4 ABG / Lab / Microbiology Data Result Diagrams: 06/11/21 07:05 06/11/21 07:05 Laboratory: Laboratory Results - last 24 hr 06/11/21 12:25: Urine Test Negative Radiography Diagnostic Testing: Radiology Impression Echocardiogram 06/10/21 17:24 Interpretation Summary The estimated ejection fraction is 60 %. Normal diastology for age. Mild tricuspid valve insufficiency. Ordering Physician: Naima Gonzáles Referring Physician: Milvia Jimenez Performed By: Alicja Farley, MARCOSCS, RVT D/C Instructions Discharge Diet: Low fat / Low cholesterol Discharge Activity: Return to Normal Activity Call your doctor if you observe: Fever of 101 or Higher, Shortness of breath, Dizziness, Fainting spells, Swelling in the ankles, Chest pain and Increased palpitations (irregular heartbeat) Meaningful Use Info Meaningful Use Diagnoses (Choose all that apply): None applicable Discharge Plan Admission Admit Date/Time: 06/10/21 15:47 Primary Reason for Your Visit: nonsustained ventricular tachycardia Attending Provider: Mayela Salomon Primary Care Provider: Milvia Jimenez Consulting Providers: Cindi Barbosa Instructions Patient Instructions: Dizziness Balance Probs Fainting, ED About Arrhythmias, ED Dizziness or Syncope ... Additional Instructions / Restrictions: Please go to the ED and/or call your PCP if you feel lightheaded, dizzy or feel your heart racing. Procure a BP machine and check BP morning and evening whilst on metoprolol. Call PCP and/or go to the ED if your BP is running at or less than 80 systolic, and/or you feel lightheaded, weak and dizzy. Call [facility] to set up appointment with Dr Whitaker (state epidemiologist) for evaluation and management. To wear 30 day event monitor to assess for arrythmias, and results will be sent to Dr Barbosa for interpretation. Discharge Orders/Prescriptions Prescriptions: New atorvastatin 40 mg Tablet 40 mg PO QHS Qty: 30 RF: 1 aspirin 81 mg Tablet,Delayed Release (Dr/Ec) 81 mg PO DAILY@0800 Qty: 30 RF: 1 metoprolol tartrate 25 mg Tablet 25 mg PO BID Qty: 60 RF: 1 Continued levothyroxine [Synthroid] 112 mcg Tablet 112 mcg PO DAILY RF: 0 drospirenone-ethinyl estradiol [Vestura (28)] 3-0.02 mg tablet 1 tab PO QHS RF: 0 Other Ambulatory Orders: 30-Day Event Recorder (Routine) Location: None Selected Ordered By: Dr. Mayela Salomon Referrals / Follow Up: Milvia Jimenez DO [Primary Care Provider] - In 1 Week Cindi Barbosa MD [STAFF PHYSICIAN] - Within 2 Weeks Neto Whitaker MD [NON-STAFF] - Within 2 Weeks (call office to set up an appointment) Disposition Disposition (needs filled in before D/C Order can be placed): Home, Self Care Charges/Coding Visit Charges Inpatient E&M: 50794 Disch Hosp
--- NOTE | 2021-06-12 12:23 | PHA.DC.MC ---
Pharmacy Service has performed discharge medication reconciliation and counseling for this patient. 1. ASPIRIN 81MG PO DAILY 2. ATORVASTATIN 40MG PO QHS 3. METOPROLOL TARTRATE 25MG PO BID The patient's discharge medication list was reviewed for discrepancies and discrepancies were resolved. Home Medications drospirenone-ethinyl estradiol [Vestura (28)] 1 tab PO QHS 06/10/21 levothyroxine [Synthroid] 112 mcg PO DAILY 06/10/21 aspirin 81 mg PO DAILY@0800 #30 tab 06/12/21 atorvastatin 40 mg PO QHS #30 tab 06/12/21 metoprolol tartrate 25 mg PO BID #60 tab 06/12/21 The patient was counseled on the following discharge medications and changes in medications for homegoing were reviewed. The Reason for Use, instructions for use, and potential side effects were reviewed for all new medications. The patient's questions regarding all of their medications were answered. The patient was able to verbally demonstrate an understanding of their discharge medications.
--- NOTE | 2021-06-12 12:29 | CL.D_ITS ---
Patient Name: JV RED Study Date: 06/11/2021 Performing: Desmond Barbosa MD Ht: 64 inches 163 cm : 1970 Wt: 150.1 lbs 68 kg Age: 50 Gender: female BSA: 1.73 PROCEDURE(S) PERFORMED [id number]/COR/LV CLINICAL PROFILE AND INDICATIONS Indications: Cardiac Arrythmia Heart Failure: None Stress/Imaging Stress/Image Study Performed: No CAD Presentations: Other: near syncope and nsvt CONCLUSIONS Angiographically normal coronary arteries Normal LV size, wall motion,and systolic function. No significant or MR RECOMMENDATIONS DESCRIPTION OF PROCEDURE The patient arrived to the procedure lab. The risks and benefits of the procedure as well as a full d escription of our services here and current unavailability of surgical backup were fully explained to the patient and/or their significant other prior to the catheterization. The Timeout was completed, verifying the correct patient and procedure. The patient's procedural site was prepped and draped in the usual fashion. Local anesthetic was given subcutaneously to right radial region with Lidocaine 2% . Using a modified Seldinger technique, arterial access was obtained via the right radial artery, a 6 Fr sheath was inserted. Left Coronary Artery selective angiography was performed in multiple views u sing a 5 Fr. JL3.5 catheter. Left Ventriculography was performed in REBOLLAR projection using a 5 Fr. Pigt ail catheter. LV to AO pullback pressures were then recorded. Right Coronary Artery selective angiogr aphy was then performed in multiple views using a 5 Fr. JR 4 catheter.The arterial sheath was pulled and a TR Band was applied for hemostasis - 7cc air CORONARY ANGIOGRAPHY DOMINANCE: Right Dominant LEFT HEART ASSESSMENT Left Ventricular Ejection Fraction: by LV Gram 55-60 % Normal Left Ventricular systolic function LEFT MAIN: Angiographically normal LEFT ANTERIOR DESCENDING ARTERY: Angiographically normal CIRCUMFLEX ARTERY: Angiographically normal RIGHT CORONARY ARTERY: Angiographically normal VALVE FINDINGS: No Aortic Valve Stenosis No Mitral Insufficency COMPLICATIONS No Complications PROCEDURE MEDICATIONS Fentanyl 50 mcg IV Versed 1 mg IV Oxygen: 2 L/min via nasal cannula Heparin given IA 06/11/2021 13:18:03 Verapamil 2.5mg, Ntg 100mcgs, 3000 units of Heparin given IA 06/11/2021 13:18:03 SUMMARY OF HEMODYNAMIC DATA Time AIR REST ECG 13:03:37 AO 109/74 (89) SA 13:21:18 LV 103/0, 8 13:24:57 LV 130/0, 11 13:25:04 LV 123/-3, 11 13:25:35 LV 123/-5, 10 13:25:41 LVp 113/0, 10 13:25:47 AOp 109/67 (89) 13:25:52 Signed By Desmond Barbosa MD On 06/12/2021 12:28:28 Desmond Barbosa MD
== END 2021-06-12 11:10 | disposition home or self-care (01) ==
LOC: ED 15:47 → PCU 15:58
PROVIDERS: Specialist; Admitting Provider Family Medicine; Emergency Provider Emergency Medicine; PCP Internal Medicine; Visit Provider Student in an Organized Health Care Education/Training Program
DX: R55 Syncope and collapse (principal); R00.2 Palpitations; I47.2 Ventricular tachycardia; I49.3 Ventricular premature depolarization; E03.9 Hypothyroidism, unspecified; E78.00 Pure hypercholesterolemia, unspecified; Z85.850 Personal history of malignant neoplasm of thyroid; Z79.899 Other long term (current) drug therapy; I07.1 Rheumatic tricuspid insufficiency; R94.31 Abnormal electrocardiogram [ECG] [EKG]
CPT/HCPCS: 36415; 71045; 78452; 80048; 80053; 80061; 81025; 83735; 84100; 84443; 84484; 85025; 93005; 93017; 93306; 93458; 96360; 96361; 99152; 99153; 99218; 99251; 99285; A9500; J7030; J7040; Q9967; A4216; C1769; C1894; G0378; G0463

== ENCOUNTER → 2021-06-10 | Outpatient (CLI) | payer OTHER, SELFPAY ==
[2021-06-10 13:16] LABS: Absolute Lymphocyte Count 2.93 X10^3/uL (0.83-4.51); Absolute Neutrophil Count 5.6 X10^3/uL (2.0-7.7); Basophil# 0.07 X10^3/uL; Basophil% 0.7 % (0-1); Eosinophil# 0.24 X10^3/uL; Eosinophils% 2.5 % (0-5); Hematocrit 39.7 % (37-47); Hemoglobin 13.3 g/dL (12.0-15.0); Lymphocyte # 2.93 X10^3/ul (0.83-4.51); Lymphocyte % 31.1 % (19-41); Mean Corp Hgb Conc 33.5 g/dL (32-36); Mean Corpuscular Hgb 29.8 pg (27.0-32.0); Mean Corpuscular Volume 88.8 fL (81-99); Mean Platelet Vol. 10.5 fl (6.2-12.0); Monocyte# 0.54 X10^3/uL; Monocyte% 5.7 % (0-10); NRBC Flagged by Analyzer 0 % (0-5); Neutrophil % 59.6 % (47-70); Platelet Count 304 K/mm3 (150-450); RBC Distribution Width SD 39.1 fl (35.1-43.9); Red Blood Count 4.47 M/mm3 (4.2-5.4); White Blood Count 9.4 K/mm3 (4.4-11.0)
[2021-06-10 13:36] LABS: ALB/GLOB Ratio 0.9 RATIO (0.9-2.4); AST(SGOT) 16 U/L (15-37); Alanine Aminotransfer ALT/SGPT 20 U/L (13-56); Albumin, Serum 3.7 g/dL (3.2-5.0); Alkaline Phosphatase 56 U/L (45-117); Anion Gap 7 (5-15); BUN 8 mg/dL (7-18); BUN/Creat Ratio 9.3 RATIO (10-20); Calcium,Total 9.3 mg/dL (8.5-10.1); Chloride 103 mmol/L (98-107); Creatinine, Serum 0.86 mg/dL (0.55-1.02); EST Glomerular Filtration Rate 74 mL/min (>60); Est Glom Filt Rate - Afr Amer 89 mL/min (>60); Globulin 4.1 g/dL (2.2-4.2); Glucose 101 mg/dL (74-106); Potassium 3.6 mmol/L (3.5-5.1); Protein, Total 7.8 g/dL (6.4-8.2); Sodium Level 137 mmol/L (136-145); Thyroid Stim Hormone (TSH) 1.27 uIU/mL (0.358-3.74); Troponin-I HS 3.6 pg/mL (3.0-53.7)
== END | disposition home or self-care (01) ==
LOC: LABSPEC 13:09
PROVIDERS: PCP Internal Medicine; Visit Provider Internal Medicine
DX: R42 Dizziness and giddiness (principal); R00.2 Palpitations
CPT/HCPCS: 80053; 84443; 84484; 85025

== ENCOUNTER → 2021-06-12 11:35 | Outpatient (CLI) | payer OTHER, SELFPAY ==
[2021-06-10 17:11] VITALS: BMI 25.4
== END ==
PROVIDERS: PCP Internal Medicine; Visit Provider Student in an Organized Health Care Education/Training Program
DX: R55 Syncope and collapse (principal)
CPT/HCPCS: 93225; 93226

== ENCOUNTER 2021-06-14 19:23 | Emergency (ER) | payer OTHER, SELFPAY ==
[2021-06-10 17:11] VITALS: BMI 25.4
[2021-06-14 19:24] VITALS: BP 118/84; PULSE 105; RESP 18; TEMP 36.6; O2SAT 100; BMI 25.2
--- NOTE | 2021-06-14 19:33 | EKG12_ITS ---
Test Reason : PALPITATIONS Blood Pressure : / mmHG Vent. Rate : 114 BPM Atrial Rate : 114 BPM P-R Int : 152 ms QRS Dur : 084 ms QT Int : 344 ms P-R-T Axes : 024 049 031 degrees QTc Int : 474 ms Sinus tachycardia with frequent and consecutive Premature ventricular complexes with non sustained wide complex tachycardia Confirmed by FRANCISCO SMITH, CON ([id number]), mapping editor ELIU YBARRA ([id number]) on 06/18/2021 9:14:40 AM Referred By: Confirmed By:CON SINGH MD
--- NOTE | 2021-06-14 19:33 | RAD_ITS ---
STUDY: X-RAY CHEST REASON FOR EXAM: Female, 50 years old. chest pain TECHNIQUE: Single frontal view of the chest. COMPARISON: 06/10/2021 FINDINGS: The lungs are clear and expanded. There is no demonstrated pleural abnormality. Normal size heart. Normal mediastinum and shira. Normal visualized pulmonary arteries. Normal visualized aortic arch and descending thoracic aorta. Normal visualized thoracic spine. Normal visualized ribs, clavicles, and shoulders. There is no demonstrated abnormality of the visualized soft tissue structures of the upper abdomen. RAD/Chest 1 View (Portable) IMPRESSION: Normal x-ray examination of the chest. Electronically Signed: Gregorio Tran MD at 21:50 EDT , Service support ,
[2021-06-14 20:15] LABS: Absolute Lymphocyte Count 3.29 X10^3/uL (0.83-4.51); Absolute Neutrophil Count 4.2 X10^3/uL (2.0-7.7); Basophil# 0.06 X10^3/uL; Basophil% 0.7 % (0-1); Eosinophil# 0.26 X10^3/uL; Hematocrit 39.2 % (37-47); Hemoglobin 13.3 g/dL (12.0-15.0); Lymphocyte # 3.29 X10^3/ul (0.83-4.51); Lymphocyte % 38.6 % (19-41); Mean Corp Hgb Conc 33.9 g/dL (32-36); Mean Corpuscular Hgb 30.2 pg (27.0-32.0); Mean Corpuscular Volume 88.9 fL (81-99); Mean Platelet Vol. 9.8 fl (6.2-12.0); Monocyte# 0.68 X10^3/uL; NRBC Flagged by Analyzer 0 % (0-5); Neutrophil # 4.23 X10^3/uL (2.7-7.7); Neutrophil % 49.6 % (47-70); Platelet Count 259 K/mm3 (150-450); RBC Distribution Width CV 12.1 % (11.6-14.6); RBC Distribution Width SD 39.1 fl (35.1-43.9); Red Blood Count 4.41 M/mm3 (4.2-5.4); White Blood Count 8.5 K/mm3 (4.4-11.0)
[2021-06-14 20:33] LABS: Anion Gap 7 (5-15); BUN 11 mg/dL (7-18); BUN/Creat Ratio 13.9 RATIO (10-20); Calcium,Total 9.1 mg/dL (8.5-10.1); Chloride 104 mmol/L (98-107); Creatinine, Serum 0.79 mg/dL (0.55-1.02); EST Glomerular Filtration Rate 81 mL/min (>60); Est Glom Filt Rate - Afr Amer 98 mL/min (>60); Estimated Creatinine Clearance 71.93 ml/min; Glucose 95 mg/dL (74-106); Potassium 3.8 mmol/L (3.5-5.1); Sodium Level 135 mmol/L (136-145); Troponin-I HS 6.5 pg/mL (3.0-53.7)
--- NOTE | 2021-06-14 20:37 | EKG12_ITS ---
Test Reason : CP Blood Pressure : / mmHG Vent. Rate : 107 BPM Atrial Rate : 107 BPM P-R Int : 156 ms QRS Dur : 084 ms QT Int : 334 ms P-R-T Axes : 051 066 016 degrees QTc Int : 445 ms Sinus tachycardia with occasional Premature ventricular complexes Otherwise normal ECG Confirmed by FRANCISCO SMITH, CON ([id number]), art editor EILU YBARRA ([id number]) on 06/18/2021 9:49:08 AM Referred By: Confirmed By:CON SINGH MD
--- NOTE | 2021-06-14 20:42 | EDS_ITS ---
HPI History of Present Illness Chief Complaint: Palpitations Informant: patient and family Onset/Context/Timing Onset: Days Current Severity: Moderate Maximum Severity: Moderate Narrative Narrative: Patient presents with recurrent palpitations. Patient was just discharged in the hospital 2 days ago after being admitted with runs of V. tach. She was placed on metoprolol 25 mg twice daily. She had a normal cardiac cath while here. She just turned in a 48-hour Holter monitor this afternoon. Patient states that this evening she had more pronounced episode of palpitations and was very lightheaded. She was seeing stars. She does not believe she lost consciousness. She denies chest pain. Nursing staff advises me that she is having runs of V. tach up to 15 beats at a time with frequent PVCs. [facility] Medical History Hypothyroidism Non-sustained ventricular tachycardia Thyroid cancer Home Medications drospirenone-ethinyl estradiol [Vestura (28)] 1 tab PO QHS 06/10/21 [History Last Taken 06/09/21] levothyroxine [Synthroid] 112 mcg PO DAILY 06/10/21 [History Last Taken 06/10/21] aspirin 81 mg PO DAILY@0800 #30 tab 06/12/21 [Rx Last Taken Unknown] atorvastatin 40 mg PO QHS #30 tab 06/12/21 [Rx Last Taken Unknown] metoprolol tartrate 25 mg PO BID #60 tab 06/12/21 [Rx Last Taken Unknown] Allergy/AdvReac Type Severity Reaction Status Date / Time No Known Allergies Allergy Verified 06/14/21 19:27 Family History Mother Cancer Mother with melanoma HLD (hyperlipidemia) Father Cancer Unclear type of sinus cancer with metastatic spread Surgical History History of left heart catheterization (~06/12/21) S/P thyroid surgery Social History household members: none Smoking Status: Never smoker alcohol intake: never substance use type: does not use ROS ROS ED Constitutional Constitutional ED: Denies chills or fever(s) Eyes Eyes: Denies change in vision ENT ENT ED: Denies sore throat Cardiovascular Cardiovascular: Reports palpitations and racing heartbeat; Denies chest pain Respiratory/Chest Respiratory/Chest: Denies cough or dyspnea Gastrointestinal Gastrointestinal: Denies abdominal pain, diarrhea, nausea or vomiting Musculoskeletal Musculoskeletal: Denies back pain Integumentary Denies rash Neurologic Neurologic: Denies headache(s) or weakness Psychiatric Psychiatric: Denies anxiety or depression Allergic/Immunologic Allergic/Immunologic ED: Denies urticaria EXAM Physical Exam Const Vital Signs: 06/14/21 19:24 06/14/21 20:18 06/14/21 20:35 Temperature 98 F Temperature Source Temporal Pulse Rate 105 H Respiratory Rate 18 Respiratory Effort Normal Non-Labored Respiratory Pattern Normal Blood Pressure 118/84 H Blood Pressure Mean 95 Pulse Ox 100 Oxygen Delivery Method Room Air Room Air Oxygen Flow Rate (L/min) 06/14/21 20:57 06/14/21 21:00 06/14/21 22:20 Temperature Temperature Source Pulse Rate 108 H 93 95 Respiratory Rate 20 H 14 19 H Respiratory Effort Respiratory Pattern Blood Pressure 123/97 H 116/59 L 119/86 H Blood Pressure Mean 105 78 97 Pulse Ox 100 100 96 Oxygen Delivery Method Nasal Cannula Nasal Cannula Room Air Oxygen Flow Rate (L/min) 2 2 Positive well nourished and well developed General Appearance ED: well developed HEENT Reports normocephalic and head/scalp atraumatic Eyes PERRL and EOMs intact bilaterally Neck supple Chest Wall inspection of chest normal and palpation of chest normal Resp normal respiratory effort and clear to auscultation bilaterally Cardio Rate: other Other Details: Irregular heart rate on auscultation with frequent runs of V. tach on monitor. Rhythm: abnormal rhythm GI non-tender Palpation: soft Extremity normal to inspection Neuro oriented x3 and no sensory deficits noted Sensorium / Orientation: alert Motor Exam: strength 5/5 throughout Psych mental status grossly normal Skin no rashes or lesions noted MDM MDM MDM Narrative Medical decision making narrative: As I am in the room patient is having frequent runs of PVCs with multiple episodes of V. tach. Patient is ordered 150 mg amiodarone bolus followed by amio drip. Notes from recent hospital stay are reviewed. Labs are ordered along with chest x-ray and EKG. Lab Data Attestation: I reviewed the patient's lab results. Labs: Laboratory Results - last 24 hr 06/14/21 06/14/21 06/14/21 20:03 20:03 20:03 WBC 8.5 RBC 4.41 Hgb 13.3 Hct 39.2 MCV 88.9 MCH 30.2 MCHC 33.9 RDW Std Deviation 39.1 RDW Coeff of [place] 12.1 Plt Count 259 MPV 9.8 Immature Gran % (Auto) 0.100 Neut % (Auto) 49.6 Lymph % (Auto) 38.6 [place] % (Auto) 8.0 Eos % (Auto) 3.0 Baso % (Auto) 0.7 Absolute Neuts (auto) 4.2 Absolute Lymphs (auto) 3.29 Nucleated RBC % 0 Sodium 135 L Potassium 3.8 Chloride 104 Carbon Dioxide 24.0 Anion Gap 7 BUN 11 Creatinine 0.79 Estim Creat Clear Calc 71.93 Est GFR (MDRD) Af Amer 98 Est GFR (MDRD) Non-Af 81 BUN/Creatinine Ratio 13.9 Glucose 95 Calcium 9.1 Magnesium 2.1 Troponin I High Sens 6.5 Radiography Diagnostic Testing: Radiology Impression Chest X-Ray 06/14/21 19:33 IMPRESSION: Normal x-ray examination of the chest. Electronically Signed: Gregorio Tran MD at 21:50 EDT , Service support , EKG Initial EKG: Attestation: I personally reviewed and interpreted this EKG as follows: Interpretation: Sinus Tachycardia (Sinus tach at 107 with no acute ischemia.) Follow-up EKG: Attestation: I personally reviewed and interpreted this EKG as follows: Interpretation: Sinus Tachycardia (6 beat run of V. tach caught on EKG. Remainder of tracing reveals sinus rhythm with occasional PVCs.) Treatment and Re-Evaluation Comments:: Following initiation of amiodarone PVC frequency has greatly reduced. Patient still has occasional small runs of V. tach but much improved. Lab work is unremarkable. I spoke with cardiology who requested the patient be transferred to a facility with EP capabilities. [facility] is the patient's first choice however there is at least a 2 to 3-day wait for a bed. I spoke with who has been asked able to accept the patient to the main campus. We are awaiting a bed assignment at this time. Patient has been updated throughout. Discharge Plan Triage Chief Complaint: Palpitations ED Provider: Codie Mcneal Dx/Rx/DC Orders Clinical Impression: V tach Prescriptions: No Action levothyroxine [Synthroid] 112 mcg Tablet 112 mcg PO DAILY RF: 0 drospirenone-ethinyl estradiol [Vestura (28)] 3-0.02 mg tablet 1 tab PO QHS RF: 0 atorvastatin 40 mg Tablet 40 mg PO QHS Qty: 30 RF: 1 aspirin 81 mg Tablet,Delayed Release (Dr/Ec) 81 mg PO DAILY@0800 Qty: 30 RF: 1 metoprolol tartrate 25 mg Tablet 25 mg PO BID Qty: 60 RF: 1 Primary Care Provider: Milvia Jimenez Referrals: Milvia Jimenez DO [Primary Care Provider] - Disposition Disposition: Acute Care Hospital Discharge Location: [facility]
[2021-06-14] MEDS: 0.9% Normal Saline 1,000 ML 150 ML IV (20:54)
[2021-06-14 20:56] LABS: Magnesium 2.1 mg/dL (1.6-2.6)
[2021-06-14 20:57] VITALS: BP 123/97; PULSE 108; RESP 20; O2SAT 100
[2021-06-14 21:00] VITALS: BP 116/59; PULSE 93; RESP 14; O2SAT 100
[2021-06-14] MEDS: Amiodarone 360 MG in Dextrose 5% Viaflo Bag 192.8 ML 33.3 MG CONT INF (21:08)
[2021-06-14 22:20] VITALS: BP 119/86; PULSE 95; RESP 19; O2SAT 96
[2021-06-14 23:45] VITALS: BP 119/86; PULSE 82; RESP 15; O2SAT 98
[2021-06-15 00:09] VITALS: BP 119/86; PULSE 82; RESP 16; TEMP 36.6; O2SAT 98
[2021-06-15 01:26] VITALS: BP 110/69; PULSE 83; RESP 15; O2SAT 97
--- NOTE | 2021-06-15 02:42 | ED.RN ---
see telemetry for runs of vtach recorded.
--- NOTE | 2021-06-15 02:57 | ED.RN ---
PHYSICIANS CALLED TO AD 90 MINUTES TO THE TRANSPORT TIME. FIRST CALL WAS AT [phone] WITH A THREE HOUR ETA AND A REQUEST TO OUTSOURCE THE CALL
[2021-06-15 03:07] VITALS: BP 110/69; PULSE 87; RESP 14; O2SAT 97
[2021-06-15] MEDS: Amiodarone 360 MG in Dextrose 5% Viaflo Bag 192.8 ML 16.7 MG CONT INF (03:07)
[2021-06-15 05:26] VITALS: PULSE 102; RESP 16; O2SAT 98
[2021-06-15 05:40] VITALS: BP 111/67; PULSE 106; RESP 16; O2SAT 98
== END 2021-06-15 05:46 | disposition short-term general hospital (02) ==
PROVIDERS: Emergency Provider Emergency Medicine; PCP Internal Medicine
DX: I47.2 Ventricular tachycardia (principal); E03.9 Hypothyroidism, unspecified; Z79.82 Long term (current) use of aspirin; Z79.899 Other long term (current) drug therapy
CPT/HCPCS: 71045; 80048; 83735; 84484; 85025; 93005; 99285; J7030; A4216

== ENCOUNTER 2021-12-26 07:56 | Outpatient (CLI) | payer OTHER, SELFPAY | END 2021-12-26 23:59 | disposition home or self-care (01) | LOC: PSN 07:57 | PROVIDERS: PCP Internal Medicine; Referring Provider Internal Medicine Cardiovascular Disease; Visit Provider Internal Medicine Cardiovascular Disease | DX: Z98.890 Other specified postprocedural states (principal) | CPT/HCPCS: 93225; 93226 ==

== ENCOUNTER → 2022-06-04 | Outpatient (CLI) | payer OTHER, SELFPAY | END | disposition home or self-care (01) | LOC: PSN 12:03 | PROVIDERS: PCP Internal Medicine; Visit Provider Internal Medicine Cardiovascular Disease | DX: I47.2 Ventricular tachycardia (principal); C73 Malignant neoplasm of thyroid gland; E78.5 Hyperlipidemia, unspecified; E03.9 Hypothyroidism, unspecified; Z98.890 Other specified postprocedural states | CPT/HCPCS: 93225; 93226 ==

== ENCOUNTER → 2023-05-11 | Outpatient (CLI) | payer OTHER, SELFPAY | END | disposition home or self-care (01) | LOC: PSN 09:00 | PROVIDERS: PCP Internal Medicine; Referring Provider Nurse Practitioner Family; Visit Provider Nurse Practitioner Family | DX: I47.20 Ventricular tachycardia, unspecified (principal) | CPT/HCPCS: 93225; 93226 ==

== ENCOUNTER 2023-07-08 16:00 | Outpatient (RCR) | payer OTHER, SELFPAY ==
--- NOTE | 2023-06-16 17:00 | HP.PTEVAL ---
Patient's Visit Information Visit Information Visit Information: JV RED is a 52 year old F referred to Physical Therapy by Dr. Ashvin Gomez MD with a diagnosis of knee pain B.. Date of Evaluation: 06/16/23 Physical Therapist: Anthony Wall, RODYT, OCS, CSCS Visit Plan Frequency: 2x /Week Duration: 4-6 Weeks Plan: 2x/week for 4 weeks to ensure stretching of ITB adn quad going well, may roll out L ITB. Progress to core and hip stab and HS/quad strength via HEP to start and get I as quick as possible. make sure it is a good challenge. Subjective Subjective: B knee pain. L knee hurts laterally with bending and cannot kneel, feels pulling on outside of L knee adn it pops with pickelball. Also hurts top of knee with biking. Duration intermittent for almost a year. R knee hurts above patella and posteriorly with biking. Duration 4 months Both are comfortable at rest. They feel Ok walking. L lateral knee is the worst pain. Exercises : pickelball, bike a couple times per week 25 miles, hikes couple times per week 3-7 miles. Worse afterwards biking and hiking. L one hurts after pickle ball. Adls are normal and not painful. Sleep is OK. Pain L knee pain: Pain Intensity (Out of 10): 0 Pain Intensity Range: 0 and 4 Comment: comfortable at rest. R knee anteriorly: Pain Intensity (Out of 10): 0 Pain Intensity Range: 0 and 4 Objective Objective: Walks I without gait deviations or pain today. Trasnfers I, steps reciprocal and I. Full aROM B knees without pain, quads and ITB tight B L >R Hip aROM WFL, extension to 8 degrees. ankle aROM WFL. reflexes 2/3 patella and achilles Sensation LE WNL to gross light touch. Strength core 3+, hip rotations 3, hip abd/ext 3+ B, flexion 4- knee ext adn flexion 4 B without pain. ankle 5/5 without pain. - varus and valgus - ant drawser - post sag - bounce home and disco test. - patellar grind. Tender at joint line medial and lateral B and L ITB distal. Balance/Special Test Scores Lower Extremity Functional Score: 67 Goals Goal 1:: pickle ball adn biking without pain Goal Time Frame: 4-6 Weeks Goal 2:: I appropr HEP to cross train with current activities. Goal Time Frame: 4-6 Weeks Goal 3:: Pain 0-1/10 at worst adn 80% better Goal Time Frame: 4-6 Weeks Goal 4:: LEFS 72 Goal Time Frame: 4-6 Weeks Rehabilitation Potential Physical Therapy Diagnosis: L itb syndrome and mild OA Rehabilitation Potential: Good Anticipated Interventions Patient/Client Instruction: Educate patient on: Condition and Plan of Care For the Purpose of:: To improve muscle performance and motor function, To increase tolerance to activity/condition/position, To improve ability of physical actions for home/community/work/leisure and To improve gait and locomotor functions Therapeutic Exercise to Include: Strength training and Flexibilty training For the Purpose of:: To decrease pain, To improve nutrient delivery to tissue, To improve muscle performance and motor function, To increase tolerance to activity/condition/position and To improve ability of physical actions for home/community/work/leisure Manual Therapy Techniques to Include: Soft tissue mobilization For the Purpose of:: To increase ROM Text: Thank you for the opportunity to evaluate your patient. For Medicare and Medicare HMO plans, please review the plan of care and approve it. It will need to be FAXED BACK to us at [phone] for Medicare purposes. For Medicare only, by signing this I certify the plan of care. Please let me know if there are questions or concerns regarding this plan of care. Physician Signature: Date:
--- NOTE | 2023-07-08 16:51 | HP.PTDCSUM_ITS ---
Discharge Summary D/C summary: It has been my pleasure to treat JV RED referred by Dr. Ashvin Gomez MD, with the diagnosis of knee pain B. for a total of 6 visit(s). Discharge Date: 07/08/23 Please see the following information for a summary of their discharge status. Subjective Subjective: It is loosening up. Can squat down further now. Pain this week is just tightness at 1/10 with squatting or stooping. Steps pull a little bit. To doctor in a couple weeks. HEP going well and a little chalenging Pain L knee pain: Pain Intensity (Out of 10): 0 R knee anteriorly: Pain Intensity (Out of 10): 0 Overall Improvement % Improvement: 80 Objective Objective/Function: Walks normal and squats well today. Subjectively improving. Goals Goal 1:: pickle ball adn biking without pain Goal Progress: Goal Met Goal 2:: I appropr HEP to cross train with current activities. Goal Progress: Goal Met Goal 3:: Pain 0-1/10 at worst adn 80% better Goal Progress: Goal Met Goal 4:: LEFS 72 Goal Progress: Goal Met Plan Plan: d/c, pt to continue via HEP D/C Information Discharge Comments: Pt to doctor in two weeks. She is 80% better today and will continue via HEP stretches and strengthening hips and knees. d/c sentence: If there are questions or concerns regarding this patient's physical therapy, lexus rodarte feel free to call me at [phone]. Thank you for the referral of this patient. Sincerely, Anthony Wall, DPT, OCS, CSCS Balance/Gait/Functional tests Balance/Special Test Scores Lower Extremity Functional Score: 73 Improvement % Improvement: 80
== END 2023-07-08 19:00 | disposition home or self-care (01) ==
LOC: PT 16:00
PROVIDERS: PCP Internal Medicine; Referring Provider Orthopaedic Surgery Sports Medicine; Visit Provider Orthopaedic Surgery Sports Medicine
DX: M25.562 Pain in left knee (principal); M25.561 Pain in right knee
CPT/HCPCS: 97110; 97140; 97161

== ENCOUNTER 2023-10-22 10:00 | Outpatient (RCR) | payer OTHER, SELFPAY ==
--- NOTE | 2023-09-08 08:22 | HP.PTEVAL ---
Patient's Visit Information Visit Information Visit Information: JV RED is a 52 year old F referred to Physical Therapy by Dr. Robby Leigh DPM with a diagnosis of RIGHT PLANTAR FASCITIS. Date of Evaluation: 09/08/23 Physical Therapist: Riky Schwarz, PT, Cert MDT, OCS Visit Plan Frequency: 2x /Week Duration: 4 Weeks Plan: PT INTERVENTIONS MANUAL THERAPY STM /HAWK /STICK PLANTAR FASCIA/CALF ,STRECHING CALF/PF ,US AND STRENGTHENING INSTRINSTICS FOOT/ARCH Subjective Subjective: This 52 y/o female presents to physical therapy with right plantar fasciitis. Patient has had PF since end of January. Pain located calcaneal plantar fascia region. Seen DR shock wave ,orthotics , night splint band stretching. No cortisone injection or medication. Aggravating factors walking/standing and activity on feet ,plays pickle ball and hike. Denies paresthesia/tingling. Patient had x-rays-. Patient sleeping okay. Patient pain affects QOL and function. Patient goals to have no pain. SOCIAL: VOCATION: Programming in [employer] Pain Right Foot: Pain Intensity (Out of 10): 5 Pain Intensity Range: 10 Objective Objective: POSTURE: frontal plane -pes planus GAIT: reciprocal pattern mild decrease stance time right side NEURO: intact PALPATION: tender calcaneal and medial arch FLEXABILITY: mild tight GS AROM: dorsiflexion 5 degrees ,plantar flexion 65 degrees ,eversion 5 degrees ,inversion 40 degrees MMT: ankle 4/5 grossly GTE 4/5 Balance/Special Test Scores Lower Extremity Functional Score: 40 Goals Goal 1:: Patient to be I with HEP for plantar fascia Goal Time Frame: 4-6 Weeks Goal 2:: Patient to demonstrate 70% improvement with decrease pain and improve function with walking/standing Goal Time Frame: 4-6 Weeks Goal 3:: Patient to improve LFES score by 5-10 points to improve QOL and function. Goal Time Frame: 4-6 Weeks Goal 4:: Patient to improve ability to walk and standing with min c/o of pain Goal Time Frame: 4-6 Weeks Goal 5:: Normalize gait pattern Goal Time Frame: 4-6 Weeks Rehabilitation Potential Physical Therapy Diagnosis: This 52 y/o female presents to physical therapy with plantar fascia pain with pain with walking and standing ,tender affects ADL's and housework tasks thus benefit from skilled PT. Rehabilitation Potential: Good Anticipated Interventions Patient/Client Instruction: Educate patient on: Condition and Plan of Care For the Purpose of:: To decrease pain, To increase ROM, To improve muscle performance and motor function, To improve ability to perform ADL's, To increase tolerance to activity/condition/position, To improve ability of physical actions for home/community/work/leisure, To improve health of tissue and To increase flexibility/ROM Therapeutic Exercise to Include: Strength training, Flexibilty training and Active ROM Comment: FOOT For the Purpose of:: To decrease pain, To increase ROM, To increase oxygenation perfusion, To improve ability to perform ADL's, To increase tolerance to activity/condition/position, To improve ability of physical actions for home/community/work/leisure, To improve health of tissue, To decrease soft tissue restriction and To increase flexibility/ROM Manual Therapy Techniques to Include: Mobilization, Functional dry needling and Soft tissue mobilization Comment: PF/CAH -STICK/HAWK For the Purpose of:: To decrease pain, To increase ROM, To improve nutrient delivery to tissue, To increase oxygenation perfusion, To improve health of tissue, To decrease soft tissue restriction and To increase flexibility/ROM Cryotherapy (ice pack, ice massage): Yes Thermo therapy (hot pack): Yes Ultrasound (thermal/non thermal): Yes Text: Thank you for the opportunity to evaluate your patient. For Medicare and Medicare HMO plans, please review the plan of care and approve it. It will need to be FAXED BACK to us at [phone] for Medicare purposes. For Medicare only, by signing this I certify the plan of care. Please let me know if there are questions or concerns regarding this plan of care. Physician Signature: Date:
--- NOTE | 2024-02-15 17:22 | HP.PTDCSUM ---
Discharge Summary D/C summary: It has been my pleasure to treat JV RED referred by Dr. Robby Leigh DPM, with the diagnosis of RIGHT PLANTAR FASCITIS for a total of 14 visit(s). Discharge Date: Please see the following information for a summary of their discharge status. Subjective Subjective: Doing some better STM works Pain Right Foot: Pain Intensity (Out of 10): 2 Overall Improvement % Improvement: 75 Objective Objective/Function: Patient responded favorable with STM and mobs Goals Goal 1:: Patient to be I with HEP for plantar fascia Goal 2:: Patient to demonstrate 70% improvement with decrease pain and improve function with walking/standing Goal 3:: Patient to improve LFES score by 5-10 points to improve QOL and function. Goal 4:: Patient to improve ability to walk and standing with min c/o of pain Goal 5:: Normalize gait pattern Plan Plan: RTD review MRI D/C Information d/c sentence: If there are questions or concerns regarding this patient's physical therapy, please feel free to call me at [phone]. Thank you for the referral of this patient. Sincerely, Riky Schwarz, PT, Cert MDT, OCS Balance/Gait/Functional tests Balance/Special Test Scores Lower Extremity Functional Score: 40 Improvement % Improvement: 75
== END 2023-10-22 19:00 | disposition home or self-care (01) ==
LOC: PT 10:00
PROVIDERS: PCP Internal Medicine; Referring Provider Podiatrist; Visit Provider Podiatrist
DX: M72.2 Plantar fascial fibromatosis (principal)
CPT/HCPCS: 97035; 97140; 97162

== ENCOUNTER → 2023-10-22 | Outpatient (CLI) | payer OTHER, SELFPAY ==
--- NOTE | 2023-10-22 06:45 | MRI_ITS ---
EXAM: MR RIGHT LOWER EXTREMITY WITHOUT INTRAVENOUS CONTRAST, ANKLE CLINICAL INDICATION: PLANTAR FASCITIS TECHNIQUE: Multiplanar and multisequence MR images of the right ankle without intravenous contrast. COMPARISON: No relevant prior studies available. FINDINGS: LIGAMENTS: ANTERIOR TALOFIBULAR: Thickening anterior talofibular ligament, posterior talofibular ligament, and calcaneofibular ligament from a previous injury. POSTERIOR TALOFIBULAR: See above. ANTERIOR TIBIOFIBULAR: Unremarkable. Intact. POSTERIOR TIBIOFIBULAR: Unremarkable. Intact. CALCANEOFIBULAR: See above. DELTOID: Unremarkable. Intact. SPRING: Unremarkable. Intact. LISFRANC: Unremarkable. Intact. TENDONS: ACHILLES: Unremarkable. Intact. FLEXOR: Unremarkable. Intact. EXTENSOR: Unremarkable. Intact. PERONEAL: Short segment split tear morphology of the peroneus brevis tendon at the level of the fibular tip with associated small volume peroneal tenosynovial fluid. TIBIALIS ANTERIOR: Unremarkable. Intact. TIBIALIS POSTERIOR: Unremarkable. Intact. MUSCLES: Unremarkable. Normal bulk and signal. FLUID: Unremarkable. No joint effusion. SINUS TARSI: Unremarkable. Normal fat in the sinus tarsi. TARSAL TUNNEL: Unremarkable. PLANTAR FASCIA: Thickened central cord with surrounding rim of fluid signal. Adjacent reactive calcaneal bone marrow signal change. CARTILAGE: Unremarkable. No osteochondral lesion. Articular cartilage intact. BONES/JOINTS: Small tibiotalar joint effusion multiple anteriorly. [id number] posterior subtalar joint effusion. Talar dome intact. No fracture or marrow edema. OTHER SOFT TISSUES: Small amount of fluid in the retrocalcaneal bursa with no adjacent Achilles tendon pathology. MRI/Lower Ext Joint Only (Routine) IMPRESSION: 1. Active plantar fasciitis with adjacent reactive calcaneal marrow signal alteration. 2. Short segment split tear morphology of the peroneus brevis tendon at the level of the fibular tip with associated mild peroneal tenosynovitis. 3. Thickening of the anterior talofibular ligament, posterior talofibular ligament, and calcaneofibular ligament from a previous injury. 4. Tibiotalar and posterior subtalar joint effusions. Electronically Signed: Alirio Crawford MD at 18:16 EST ,
== END | disposition home or self-care (01) ==
PROVIDERS: PCP Internal Medicine; Referring Provider Podiatrist; Visit Provider Podiatrist
DX: M72.2 Plantar fascial fibromatosis (principal)
CPT/HCPCS: 73721

== ENCOUNTER → 2024-09-23 | Outpatient (CLI) | payer OTHER, SELFPAY | END | disposition home or self-care (01) | PROVIDERS: PCP Internal Medicine; Referring Provider Nurse Practitioner Gerontology; Visit Provider Nurse Practitioner Gerontology | DX: I47.20 Ventricular tachycardia, unspecified (principal) | CPT/HCPCS: 93225; 93226 ==

== ENCOUNTER → 2024-10-14 | Outpatient (CLI) | payer OTHER, SELFPAY ==
[2024-10-14 11:08] LABS: CPK Total, Creatine Kinase 53 U/L (26-192); CRP < 2.90 mg/L (0.0-3.0); Troponin-I HS 3 pg/mL (3.0-54.0)
[2024-10-14 11:12] LABS: D-Dimer Quantitative (DVT/PE) 0.27 FEU/ug/m (0.27-0.49)
== END | disposition home or self-care (01) ==
PROVIDERS: PCP Internal Medicine; Referring Provider Nurse Practitioner Family; Visit Provider Nurse Practitioner Family
DX: R07.9 Chest pain, unspecified (principal)
CPT/HCPCS: 82550; 84484; 85379; 86140

== ENCOUNTER → 2024-10-31 | Outpatient (CLI) | payer OTHER, SELFPAY ==
--- NOTE | 2024-10-31 11:42 | RAD_ITS ---
INDICATION: three days of cough EXAMINATION/TECHNIQUE: X-RAY - XR Chest 2 Views COMPARISON: Prior study dated: 10/14/2024 FINDINGS: LINES/DEVICES: None. LUNGS: No consolidation, edema or effusion. No pneumothorax. MEDIASTINUM AND CARDIOVASCULAR STRUCTURES: Cardiac silhouette not enlarged. Central airways and mediastinal contour are unremarkable. BONES AND SOFT TISSUES: Unremarkable. RAD/Chest PA and Lateral IMPRESSION: No radiographic evidence of acute cardiopulmonary disease. Electronically Signed: Abdelrahman Good MD at 13:09 EST ,
== END | disposition home or self-care (01) ==
PROVIDERS: PCP Internal Medicine; Referring Provider Nurse Practitioner; Visit Provider Nurse Practitioner
DX: R05.1 Acute cough (principal)
CPT/HCPCS: 71046